=== PATIENT | female | born 1995 | race Two or more races ===

== ENCOUNTER 2020-08-24 10:13 | Observation (INO) | payer MEDICAID ==
[2020-08-24] MEDS ORDERED: PREN-129 PO (11:22)
== END 2020-08-24 12:08 | disposition home or self-care (01) ==
LOC: LDRP 10:13
PROVIDERS: ADMIT Specialist; ATTEND Specialist
DX: O48.0 Post-term pregnancy (principal); Z3A.40 40 weeks gestation of pregnancy
CPT/HCPCS: 59025; 76818; 81002; 84112; G0378; Q0114

== ENCOUNTER 2020-08-26 09:24 | Observation (INO) | payer MEDICAID ==
[~2020-08-26 09:24] MED LIST: PREN-129 PO
== END 2020-08-26 11:25 | disposition home or self-care (01) ==
LOC: LDRP 09:24
PROVIDERS: ADMIT Obstetrics & Gynecology; ATTEND Obstetrics & Gynecology
DX: O48.0 Post-term pregnancy (principal); Z3A.40 40 weeks gestation of pregnancy
CPT/HCPCS: 59025; 76818; 81002; 84112; 94760; G0378; Q0114